=== PATIENT | female | born 1995 | race Two or more races ===

== ENCOUNTER 2022-11-12 01:43 | Emergency (ER) | payer SELFPAY ==
[~2022-11-12] VITALS: Ht 165.1 cm; Wt 117.9 kg
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
[2022-11-12] MEDS ORDERED: IBUPROFEN 400 MG TABLET ONE (02:22)
--- NOTE | 2022-11-12 02:25 | NUR ---
Pt signed preg waiver form;
[2022-11-12] MEDS ORDERED: IBUPROFEN 400 MG TABLET PO ONE (02:30)
--- NOTE | 2022-11-12 03:54 | NUR ---
[employer] AT PT'S BEDSIDE
--- NOTE | 2022-11-12 04:02 | NUR ---
PT TAKEN TO CT VIA [facility]
--- NOTE | 2022-11-12 04:19 | NUR ---
PT RETURNED TO ER BED [address]
[2022-11-12] MEDS ORDERED: HYDROCODONE/APAP 5/325MG TABLET ONE (05:50)
[2022-11-12] MEDS ORDERED: HYDROCODONE/APAP 5/325MG TABLET PO ONE (06:00)
--- NOTE | 2022-11-12 06:01 | NUR ---
AWAITING FOR PT'S PARTNER TO [employer] PT FOR D/C
[2022-11-12 06:25] VITALS: BP 147/71
--- NOTE | 2022-11-12 06:25 | NUR ---
Patient discharged to home in stable condition. Written and verbal after care instructions given. Patient verbalizes understanding of instruction.
== END 2022-11-12 06:26 | disposition home or self-care (01) ==
LOC: ER 01:45
DX: S13.4XXA Sprain of ligaments of cervical spine, initial encounter (principal); S33.5XXA Sprain of ligaments of lumbar spine, initial encounter; M54.31 Sciatica, right side; J45.909 Unspecified asthma, uncomplicated; Z88.8 Allergy status to other drugs, medicaments and biological substances; V49.9XXA Car occupant (driver) (passenger) injured in unspecified traffic accident, initial encounter; Y93.89 Activity, other specified; Y92.89 Other specified places as the place of occurrence of the external cause; Y99.8 Other external cause status
CPT/HCPCS: 72125-TC; 72131-TC